=== PATIENT | male | born 2000 | race Caucasian/White ===

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

== ENCOUNTER → 2020-08-15 | Outpatient (CLI) | payer BC ==
[~2020-08-15] MED LIST: ZOFRAN ODT4 MG PO
== END ==
LOC: COL.RAD 07:52
DX: N50.82 Scrotal pain (principal)